=== PATIENT | female | born 1950 | race Caucasian/White ===

== ENCOUNTER → 2016-10-01 | Outpatient (CLI) | payer OTHER, MEDICARE ==
--- NOTE | 2016-10-01 15:44 | MA ---
Screening Digital Mammogram With iCAD Analysis Clinical Indications: Routine screening. A sister was diagnosed with breast cancer in her 60s and he r mother and a maternal aunt in their 70s. Technique: Standard cephalocaudal and mediolateral oblique projections were obtained. This examinatio n was processed by the iCAD computer aided detection system. Comparison: May 2015, May 2014, March 2013, March 2012, February 2011, January 2010, November 2008. Breast density: Type B; Scattered fibroglandular densities. Findings: CAD was reviewed. No masses, suspicious calcifications or other signs of malignancy are id entified. There has been no significant change in the appearance of either breast. Impression: Negative mammogram. BI-RADS 1. Recommendation: Routine mammographic screening in one year as long as physical [facility] Negative mammography should not preclude additional workup of a clinically suspicious finding. The patient's information is entered into a reminder system with a target due date for her next mammo gram.
== END ==
LOC: BMCIMAGING 14:13
DX: Z12.31 Encounter for screening mammogram for malignant neoplasm of breast (principal); Z80.3 Family history of malignant neoplasm of breast
CPT/HCPCS: G0202

== ENCOUNTER 2017-06-17 09:15 | Inpatient (IN) | payer OTHER, MEDICARE ==
[2017-05-27 12:28] LABS: % IMMATURE GRANULYOCYTES 0.2 % (0.0-1.1); ABSOLUTE IMMATURE GRANULOCYTES 0.01 10^3/uL (0.00-0.10); ADD DIFF? NO; ADD MORPH? NO; ADD SCAN? NO; ATYPICAL LYMPHOCYTE FLAG 20 (0-99); FRAGMENT RBC FLAG 0 (0-99); HEMATOCRIT 40.8 % (38.0-47.0); HEMOGLOBIN 13.3 g/dL (12.6-16.3); LEFT SHIFT FLG 0 (0-99); LIPEMIA HEMOLYSIS FLAG 80 (0-99); MEAN CELL HEMOGLOBIN 31.4 pg (27.9-34.1); MEAN CELL HEMOGLOBIN CONCENTR. 32.6 g/dL (32.4-36.7); MEAN CELL VOLUME 96.5 fL (81.5-99.8); MEAN PLATELET VOLUME 9.8 fL (8.7-11.7); PLATELET CLUMPS FLAG 0 (0-99); PLATELET COUNT 234 10^3/uL (150-400); RED BLOOD CELL COUNT 4.23 10^6/uL (4.18-5.33); RED CELL DISTRIBUTION WIDTH 14.1 % (11.5-15.2)
[~2017-06-17 09:15] MED LIST: BUPIVACAINE 0.5% 30 ML SDV ONE; ROPIVACAINE 0.2% 80 MG, EPINEPHrine 0.2 MG in BAG 0 ML IU ONE; TRANEXAMIC ACID 3,000 MG in NS 50 ML IRR ONE; TRANEXAMIC ACID 3,000 MG/50 ML BAG IRR ONE; VANCOMYCIN 1 GM VIAL ONE
[2017-06-17] MEDS ORDERED: DEXAMETHASONE 4 MG/ML VIAL IVP ONE (09:46)
[2017-06-17] MEDS ORDERED: ceFAZolin 2 GM/DEXTROSE 100 ML IV ONE (09:46)
[2017-06-17] MEDS ORDERED: FAMOTIDINE 20 MG TAB PO ONE (09:46)
[2017-06-17] MEDS ORDERED: ACETAMINOPHEN 325 MG TAB PO ONE (09:46)
[2017-06-17] MEDS ORDERED: LR 1,000 ML IV ONE (09:59)
--- NOTE | 2017-06-17 10:25 | PDANEPAE ---
ANE History of Present Illness 67 yo female for L TKA. ANE Past Medical History - Cardiovascular History Hx Hypertension: No Hx Arrhythmias: No Hx Chest Pain: No Hx Coronary Artery / Peripheral Vascular Disease: No Hx CHF / Valvular Disease: No Hx Palpitations: No - Pulmonary History Hx COPD: No Hx Asthma/Reactive Airway Disease: No Hx Recent Upper Respiratory Infection: No Hx Oxygen in Use at Home: No Hx Sleep Apnea: No Sleep Apnea Screening Result - Last Documented: Negative - Neurologic History Hx Cerebrovascular Accident: No Hx Seizures: No Hx Dementia: No - Endocrine History Hx Diabetes: No Hypothyroid: No Obesity: no - Renal History Hx Renal Disorders: No - Liver History Hx Hepatic Disorders: No - Neurological & Psychiatric Hx Hx Neurological and Psychiatric Disorders: No - Cancer History Hx Cancer: No - Congenital Disorder History Hx Congenital Disorders: No - GI History Hx Gastrointestinal Disorders: Yes Gastrointestinal History Comment: PAST 6 MONTHS DIARRHEA ISSUES BEING MANAGED WITH DIET AND SUPPLEMENTS, had colostomy (now taken down) after total colectomy for refractory constipation - Other Health History Other Health History: OSTEOARTHRITIS - Chronic Pain History Chronic Pain: Yes (LT KNEE) - Surgical History Prior Surgeries: LT KNEE SCOPES. TOTAL COLECTOMY RELATED TO CHRONIC CONSTIPATION ISSUES. TEMP COLOSTOMY BAG WITH POST REVERSAL ANE Review of Systems Review of Systems: No URI/fever x2 weeks. - Exercise capacity METS (RN): 4 METS - Systems Constitutional: Reports: no symptoms Cardiac: Reports: no symptoms Respiratory: Reports: no symptoms Gastrointestinal: Reports: diarrhea Muscolosketal: Reports: joint pain (joint mobility) ANE Patient History - Allergies Allergies/Adverse Reactions: No Known Allergies Allergy (Verified 06/17/17 10:26) - Home Medications Home Medications: ALPRAZolam [Xanax 0.25 MG (*)] 0.125 - 0.25 mg PO DAILY PRN 05/12/17 [Last Taken Unknown] Aspirin EC [Aspirin EC 81 mg (*)] 81 mg PO Q3D 05/12/17 [Last Taken 06/03/17] Calcium Carb W/Vit D [Calcium Carb W/Vit D 500/200 (*)] 1,000 mg PO BID [Last Taken 06/03/17] Cetirizine [ZyrTEC 10 mg (*)] 10 mg PO DAILY 05/12/17 [Last Taken 06/17/17 08:00 ] Cholecalciferol Vit D3 [Vitamin D3 2000 units tab (OTC)] 2,000 units PO DAILY [Last Taken 06/03/17] Cyanocobalamin [Vitamin B12 (*)] 1,000 mcg PO DAILY 05/12/17 [Last Taken ] Herbals/Supplements -Info Only 1 ea PO DAILY 05/12/17 [Last Taken 06/17/17] Magnesium Oxide [Magnesium Oxide 400 mg (*)] 200 mg PO HS 05/12/17 [Last Taken 06/03/17] Naproxen Sodium [Aleve 220 MG (*)] 220 mg PO DAILY PRN 05/12/17 [Last Taken Unknown] Pyridoxine HCl [Vitamin B-6 100 mg (*)] 100 mg PO DAILY 05/12/17 [Last Taken ] QUEtiapine FUMARATE [Seroquel 300mg (*)] 300 mg PO HS 05/12/17 [Last Taken 06/17] - NPO status NPO Since - Liquids (Date): 06/16/17 NPO Since - Liquids (Time): 22:30 NPO Since - Solids (Date): 06/16/17 NPO Since - Solids (Time): 21:00 - Anes Hx Anes Hx: no prior problems - Smoking Hx Smoking Status: Former smoker - Alcohol Use Alcohol Use: Occasionally ANE Labs/Vital Signs - Labs Result Diagrams: 05/27/17 12:19 - Vital Signs Blood Pressure: 100/60 Heart Rate: 54 Respiratory Rate: 16 O2 Sat (%): 95 Height: 177.8 cm Weight: 58.06 kg ANE Physical Exam - Airway Neck exam: FROM Mallampati Score: Class 2 Mouth exam: normal dental/mouth exam - Pulmonary Pulmonary: clear to auscultation - Cardiovascular Cardiovascular: regular rate and rhythym - ASA Status ASA Status: III ANE Anesthesia Plan Anesthesia Plan: spinal Regional Anesthesia: adductor canal FNB
[2017-06-17] MEDS ORDERED: MIDAZOLAM 2 MG/2 ML VIAL IVP ONE (10:47)
[2017-06-17] MEDS ORDERED: PROPOFOL/EMULSION 500 MG/50 ML BOTTLE IV ONE (11:33)
[2017-06-17] MEDS ORDERED: fentaNYL 100 MCG/2 ML INJ ONE (11:33)
[2017-06-17] MEDS ORDERED: DEXAMETHASONE 4 MG/ML VIAL ONE (11:34)
--- NOTE | 2017-06-17 11:55 | PDHPUP ---
History & Physical Update H&P update statement: This history and physical update is based on an assessment of the patient which was completed after admission or registration (within 24 hours), but prior to the surgery/procedure. H&P update: H&P reviewed & patient examined, no change in patient's condition since H&P completed
[2017-06-17] MEDS ORDERED: fentaNYL 100 MCG/2 ML INJ IVP PRN (12:51)
[2017-06-17] MEDS ORDERED: OXYCODONE/APAP 5/325 TAB PO PRN (12:51)
[2017-06-17] MEDS ORDERED: NALOXONE HCL 0.4 MG/ML INJ IVP PRN (12:51)
[2017-06-17] MEDS ORDERED: ONDANSETRON 4 MG/2 ML VIAL IVP PRN ×2 (12:51→13:15)
[2017-06-17] MEDS ORDERED: BISACODYL 10 MG SUPP PR PRN (13:15)
[2017-06-17] MEDS ORDERED: MAGNESIUM HYDROXIDE 30 ML UDCUP PO PRN (13:15)
[2017-06-17] MEDS ORDERED: DIPHENOXYLATE/ATROPINE LOMOTIL 1 TAB PO PRN (13:15)
[2017-06-17] MEDS ORDERED: CYCLOBENZAPRINE 10 MG TAB PO PRN (13:15)
[2017-06-17] MEDS ORDERED: TEMAZEPAM 15 MG CAP PO PRN (13:15)
[2017-06-17] MEDS ORDERED: ONDANSETRON DISINTEGRATING 4 MG TAB PO PRN (13:15)
[2017-06-17] MEDS ORDERED: PROMETHAZINE HCL 25 MG/ML INJ IVP PRN (13:15)
[2017-06-17] MEDS ORDERED: PROMETHAZINE HCL 25 MG SUPPR PR PRN (13:15)
[2017-06-17] MEDS ORDERED: diphenhydrAMINE 25 MG CAP PO PRN (13:15)
[2017-06-17] MEDS ORDERED: METOCLOPRAMIDE 10 MG/2 ML VIAL IVP PRN (13:15)
[2017-06-17] MEDS ORDERED: LACTULOSE 20 GM/30 ML UDCUP PO PRN (13:15)
[2017-06-17] MEDS ORDERED: POLYETHYLENE GLYCOL 3350 17 GM PKT PO PRN (13:15)
--- NOTE | 2017-06-17 13:15 | POSTOPPROG ---
Post Op Note Date of Operation: 06/17/17 Surgeon: Loni Early Bicycle Racer: ying early Anesthesiologist: dr. noonan Anesthesia: Spinal, Other (Specify) (adductor canal) Pre-op Diagnosis: left knee AO Post-op Diagnosis: same Indication: left knee pain due to OA that failed conservative measures Procedure: L TKA Findings: severe knee OA Inf/Abcess present in the surg proc area at time of surgery?: No EBL: 50-100
[2017-06-17] MEDS ORDERED: ALPRAZolam 0.25 MG TAB PO PRN (13:17)
[2017-06-17] MEDS ORDERED: LR 1,000 ML IV SCH (13:30)
--- NOTE | 2017-06-17 13:43 | POSTANESTH ---
Post Anesthetic Evaluation Cardiovascular Status: Normal, Stable Respiratory Status: Normal, Stable Level of Consciousness/Mental Status: Can Participate in Eval, Mildly Sleepy, Arousable Pain Control: Adequate, Prn Tx Ordered Nausea/Vomiting Control: Adequate, Prn Tx Ordered Complications Possibly Related to Anesthesia: None Noted
[2017-06-17] MEDS: ACETAMINOPHEN 325 MG TAB PO SCH ×2 (17:04→23:53)
[2017-06-17] MEDS: WARFARIN SODIUM 5 MG TAB PO SCH (17:05)
[2017-06-17] MEDS: oxyCODONE IR 5 MG TAB PO PRN (20:03)
[2017-06-17] MEDS: FAMOTIDINE 20 MG TAB PO SCH (20:04)
[2017-06-17] MEDS: SENNOSIDES/DOCUSATE SODIUM TAB PO SCH (20:06)
[2017-06-17] MEDS: ceFAZolin 2 GM/DEXTROSE 100 ML IV SCH (20:09)
[2017-06-17] MEDS ORDERED: QUEtiapine FUMARATE 300 MG TAB PO SCH (21:00)
[2017-06-18] MEDS: oxyCODONE IR 5 MG TAB PO PRN ×2 (03:04→12:20)
[2017-06-18 03:11] VITALS: TEMP 97.4
[2017-06-18] MEDS: ceFAZolin 2 GM/DEXTROSE 100 ML IV SCH (03:20)
[2017-06-18] MEDS: ACETAMINOPHEN 325 MG TAB PO SCH ×2 (04:58→12:19)
[2017-06-18 05:18] LABS: HEMATOCRIT 33.7 % (38.0-47.0); HEMOGLOBIN 10.9 g/dL (12.6-16.3)
[2017-06-18 05:24] LABS: INR 1.09 (0.83-1.16)
[2017-06-18 07:57] VITALS: BP 94/53; PULSE 76; RESP 14; O2SAT 98
[2017-06-18] MEDS: FAMOTIDINE 20 MG TAB PO SCH (08:27)
[2017-06-18] MEDS: SENNOSIDES/DOCUSATE SODIUM TAB PO SCH (08:27)
[2017-06-18] MEDS ORDERED: ENOXAPARIN 40 MG/0.4 ML SYR SC SCH (09:00)
[2017-06-18] MEDS ORDERED: CETIRIZINE 10 MG TAB PO SCH (09:00)
--- NOTE | 2017-06-18 10:32 | SOAPPROG ---
SOAP Progress Note Assessment/Plan: Assessment: Meredith is doing well POD 1 s/p L TKA 1) pain management: pain is well controlled on oral pain meds. 2) Anemia: level expected initially postop. asymptomatic. cont to monitor 3) VTE ppx: recommend coumadin 5mg once daily and lovenox for the next four days. cont DIMPLE carsone and SCDs 4)D/c planning: d/c to home pending release from PT Plan: 06/18/17 10:30 Subjective: Meredith is doing well today, denies SOB, chest pain and N/V. Objective: Vital Signs Temp Pulse Resp BP Pulse Ox 36.3 C 76 14 94/53 L 98 06/18/17 07:56 06/18/17 07:56 06/18/17 07:56 06/18/17 07:56 06/18/17 07:56 Laboratory Results 06/18/17 04:56 06/17/17 06/18/17 06/19/17 05:59 05:59 05:59 Intake Total 3253 350 Output Total 2200 250 Balance 1053 100 PT 14.0 SEC (12.0-15.0) 06/18/17 04:56 INR 1.09 (0.83-1.16) 06/18/17 04:56 LLE: incision dressing is clean and dry, NVI, +pf/df ICD10 Worksheet Patient Problems: Problems Problem Status Onset Primary localized osteoarthritis of left knee Acute
--- NOTE | 2017-06-18 11:36 | GDS ---
[f rep st] DISCHARGE SUMMARY ADMISSION DIAGNOSIS: Left knee osteoarthritis. DISCHARGE DIAGNOSIS: Left knee osteoarthritis. PROCEDURE: Left total knee arthroplasty. VTE PROPHYLAXIS: Coumadin and Lovenox recommended. BRIEF DESCRIPTION OF HOSPITAL STAY: Patient was admitted for an elective joint arthroplasty. The pa tient tolerated the procedure well and has passed physical therapy. The patient was given appropriat e antibiotic prophylaxis and venous thromboembolism prophylaxis. The patient's pain was well control led on oral pain medication, patient was holding down food, and had urinated. Decision was made to d ischarge the patient. The patient was given post-operative prescriptions pre-operatively. PLAN: Please follow up as scheduled in Dr. Joyner's office on July 09 at 10 a.m. /[id number]/MODL
[2017-06-18] MEDS: WARFARIN SODIUM 5 MG TAB PO SCH (12:47)
--- NOTE | 2017-06-18 14:36 | ASDISCHSUM ---
Discharge Information Plan Status:Home with No Needs Medically Cleared to Leave: Discharge Date:06/18/2017 12:59 PM CM D/C Disposition:Home, Routine, Self-Care ADT D/C Disposition:Home, Routine, Self-Care Projected Discharge Date:06/18/2017 12:59 PM Transportation at D/C: Discharge Delay Reason: Follow-Up Date:06/18/2017 12:59 PM Discharge Slot: Final Diagnosis: Placement Information Patient Contact Information Contact Name:LIT Relationship: Address:[address] City:[place] Alternate Phone: State/Zip Code:[place] [address] Email: Financial Information Financial Class: Primary Plan Desc:MEDICARE INPATIENT Primary Plan Number:[id number] Secondary Plan Desc:[employer]/MDR SUPPLEMENT Secondary Plan Number:[id number] Assessment Information Intervention Information
--- NOTE | 2017-06-18 22:29 | GOP ---
[f rep st] OPERATIVE REPORT DATE OF OPERATION: 06/17/2017 SURGEON: Yany Joyner MD SLACKMAN: Emperatriz Joyner PA-C ANESTHESIA: Spinal. PREOPERATIVE DIAGNOSIS: Left knee osteoarthritis. POSTOPERATIVE DIAGNOSIS: Left knee osteoarthritis. PROCEDURE PERFORMED: Left total knee arthroplasty. FINDINGS: ESTIMATED BLOOD LOSS: 30 cc. INDICATIONS: This is a 67-year-old female with severe and progressive pain and deformity of the left knee unresponsive to conservative care. Risks and benefits of the surgical intervention were explai nat in detail. DESCRIPTION OF PROCEDURE: The patient was brought to the operative room and placed on the table in t he supine position. Spinal anesthesia was induced without difficulty. A pneumatic tourniquet was ap plied about the left proximal thigh, and the leg was prepped and draped in a sterile fashion. The le g yarbrough was applied. After exsanguination by elevation the tourniquet was inflated to 250 mm of ernesto cury. Incision was made anterior medial from the tibial tuberosity to a point 2 cm proximal to the superior pole of the patella. Medial parapatellar arthrotomy was carried out from the superior pole of the p atella and posteriorly in line with the fibers of the Type 2 VMO. The medial collateral ligament was elevated and the infrapatellar fat pad was resected. The patella was everted and the articular surface was excised. A 32 mm patellar button was placed. T he distal femoral guide hole was drilled and the 6-degree alignment efrain was placed. A 10 mm distal f emoral cut was made without difficulty. Attention was turned to the tibia and a standard 6 mm cut based on the medial tibial condyle was perf ormed. The tibial articular surface was excised without difficulty. Attention was turned back to the femur and a size 4 femoral cutting block was positioned. Anterior, posterior, and chamfer cuts were made, followed by the intercondylar box cut. The knee was extended and the remnants of the medial and lateral meniscus were excised. The posterio r capsule was injected with ropivacaine, epinephrine and Toradol. A size 4 tibial tray was positione d. Trial reduction was then carried out. There was excellent range of motion, alignment, and stabil ity using the 13 mm polyethylene. All trials were then removed. The joint was thoroughly irrigated and carefully dried. Two packages of cement and 2 grams of vancomycin were mixed in the vacuum mixer and placed on the fixation surface s of all surfaces of the components. The components were implanted and all excess cement was thoroug hly removed. The permanent 13 mm polyethylene was placed without difficulty. The tourniquet was deflated and all bleeders were coagulated. The wound was thoroughly irrigated and closed using interrupted sutures of 2-0 Vicryl for the joint capsule. The subcu was closed with 3-0 Vicryl and the skin with 4-0 Monocryl. Dermabond and Steri-Strips were applied followed by a compre ssive dressing. The patient was then moved from the operating room to the recovery room in good cond ition, having tolerated the procedure well. PATHOLOGY: Severe lateral and patellofemoral osteoarthritis. /[id number]/MODL
== END 2017-06-18 12:59 | disposition home or self-care (01) | DRG 470 ==
LOC: F3N 09:19
PROVIDERS: ADMIT Orthopaedic Surgery; ATTEND Orthopaedic Surgery
PROC: 0SRD0J9 Replacement of Left Knee Joint with Synthetic Substitute, Cemented, Open Approach (ICD-10-PCS; principal; 2017-06-17 11:15)
DX: M17.12 Unilateral primary osteoarthritis, left knee (principal)
CPT/HCPCS: 97110-GP; 97116-GP; 97161-GP; 97165-GO; C1713; G8978-GP-CI; G8978-GP-CJ; G8979-GP-CI; G8980-GP-CI; G8987-GO-CI; G8988-GO-CI; G8989-GO-CI; J0171; J0690; J1100; J1650; J2250; J2704; J2795; J3010; J3370

== ENCOUNTER → 2017-10-19 | Outpatient (CLI) | payer OTHER, MEDICARE | LOC: BMCIMAGING 13:08 | PROVIDERS: ATTEND Internal Medicine | DX: Z12.31 Encounter for screening mammogram for malignant neoplasm of breast (principal); Z80.3 Family history of malignant neoplasm of breast ==

== ENCOUNTER → 2018-11-24 | Outpatient (CLI) | payer OTHER, MEDICARE | LOC: BMCIMAGING 13:37 | PROVIDERS: ATTEND Nurse Practitioner Adult Health | DX: M79.9 Soft tissue disorder, unspecified (principal) ==

== ENCOUNTER → 2018-12-23 | Outpatient (CLI) | payer OTHER, MEDICARE ==
[~2018-12-23] MED LIST changes: -BUPIVACAINE 0.5% 30 ML SDV ONE; +GADOBUTROL 10 ML VIAL IVP ONE; -ROPIVACAINE 0.2% 80 MG, EPINEPHrine 0.2 MG in BAG 0 ML IU ONE; -TRANEXAMIC ACID 3,000 MG in NS 50 ML IRR ONE; -TRANEXAMIC ACID 3,000 MG/50 ML BAG IRR ONE; -VANCOMYCIN 1 GM VIAL ONE
== END ==
LOC: FIMAGING 09:11
PROVIDERS: ATTEND Internal Medicine
DX: M81.0 Age-related osteoporosis without current pathological fracture (principal); Z78.0 Asymptomatic menopausal state; Z80.3 Family history of malignant neoplasm of breast
CPT/HCPCS: 77080; A9585; C8908

== ENCOUNTER → 2018-12-31 | Outpatient (CLI) | payer OTHER, MEDICARE | LOC: FIMAGING 14:45 | PROVIDERS: ATTEND Internal Medicine | DX: R07.81 Pleurodynia (principal); J84.10 Pulmonary fibrosis, unspecified ==